=== PATIENT | male | born 1970 | race Caucasian/White ===

== ENCOUNTER → 2020-01-13 13:44 | Outpatient (POV) | payer BC, SELFPAY | DX: Z00.00 Encounter for general adult medical examination without abnormal findings (principal) ==

== ENCOUNTER → 2020-05-27 08:06 | Outpatient (CLI) | payer BC, SELFPAY ==
[2020-05-27 09:23] LABS: Basophils # 0.1 K/mm3 (0-0.2); Eosinophils # 0.2 K/mm3 (0.0-0.4); Eosinophils % 2.1 % (0.1-12.0); Hematocrit 51.8 % (42.0-52.0); Hemoglobin 17.6 g/dL (14.1-18.0); Lymphocytes # 2.2 K/mm3 (0.7-4.5); Lymphocytes % 29.7 % (10-50); Mean Corpuscular HGB Conc 33.9 g/dL (31.8-35.4); Mean Corpuscular Hemoglobin 31.2 pg (27.0-31.2); Mean Corpuscular Volume 92.1 fl (80-94); Mean Platelet Volume 9.3 fl (7.4-10.4); Monocytes # 0.5 K/mm3 (0.1-1.0); Monocytes % 6.5 % (1.7-9.3); Neutrophils # 4.5 K/mm3 (1.8-7.8); Neutrophils % 60.7 % (37.0-80.0); Platelet Count 258 K/mm3 (142-424); Red Blood Count 5.63 M/mm3 (4.60-6.20); Red Cell Distribution Width 13.6 % (11.5-17.5); White Blood Count 7.3 K/mm3 (4.8-10.8)
[2020-05-27 10:02] LABS: Alanine Aminotransferase 33 U/L (12-78); Albumin Level 4.4 g/dl (3.5-5.0); Albumin/Globulin Ratio 1.5 (1.1-1.8); Alkaline Phosphatase 36 U/L (38-126); Anion Gap 13.9 mEq/L (5-15); Aspartate Amino Transferase 30 U/L (17-59); Bilirubin,Total 1.2 mg/dl (0.2-1.3); Blood Urea Nitrogen 13 mg/dl (9-20); Calcium 9.7 mg/dl (8.4-10.2); Carbon Dioxide 25 mmol/L (22.0-30.0); Chloride 104 mmol/L (98-107); Cholesterol 127 mg/dl (140-200); Estimated Glomerular Filt Rate 89 ml/min (>60); GFR (African American) 108 ML/MIN (>60); Glucose 121 mg/dl (74-100); HDL Cholesterol 32 mg/dl (40-60); Potassium 4.9 mmoL/L (3.5-5.1); Sodium 138 mmol/L (136-145); Total Protein,Serum 7.4 g/dl (6.3-8.2); Triglycerides 67 mg/dl (30-150); VLDL Cholesterol 13 mg/dL (0-40)
[2020-05-27 10:12] LABS: Direct LDL Cholesterol 82.87 mg/dL (100-129)
[2020-05-31 10:49] LABS: Testosterone, Total, LC/MS 450.5 ng/dL (264.0-916.0); Testosterone,Free 7.7 pg/mL (7.2-24.0)
== END ==
PROVIDERS: Visit Provider Internal Medicine Adolescent Medicine
DX: I10 Essential (primary) hypertension (principal); E29.1 Testicular hypofunction
CPT/HCPCS: 36415; 80053; 80061; 84402; 84403; 85025

== ENCOUNTER → 2020-05-31 10:36 | Outpatient (CLI) | payer BC, SELFPAY ==
[2020-05-31 14:05] LABS: Hemoglobin A1C 5.8 % (4.0-6.0)
== END ==
PROVIDERS: Visit Provider Internal Medicine Adolescent Medicine
DX: I10 Essential (primary) hypertension (principal); E29.1 Testicular hypofunction
CPT/HCPCS: 36415; 83036

== ENCOUNTER → 2021-03-13 12:12 | Outpatient (CLI) | payer SELFPAY | PROVIDERS: PCP Internal Medicine Adolescent Medicine; Visit Provider Nurse Practitioner | DX: Z20.822 Contact with and (suspected) exposure to COVID-19 (principal) ==

== ENCOUNTER → 2021-03-13 12:18 | Outpatient (CLI) | payer OTHER, SELFPAY | PROVIDERS: PCP Internal Medicine Adolescent Medicine; Visit Provider Nurse Practitioner | DX: Z20.822 Contact with and (suspected) exposure to COVID-19 (principal) | CPT/HCPCS: C9803; U0003; U0005 ==

== ENCOUNTER → 2021-07-06 07:47 | Outpatient (CLI) | payer OTHER, SELFPAY ==
--- NOTE | 2021-07-06 08:06 | MR_ITS ---
FINAL REPORT CLINICAL HISTORY: FAMILY HISTORY OF CEREBRAL ANEURYSM. hypertesion FINDINGS: Multiple projection images of the brain arterial vasculature were obtained without contrast. The raw data images were also reviewed. The distal internal carotid, distal vertebral and basilar arteries have an unremarkable appearance without evidence of significant stenosis or occlusion. The proximal anterior, middle and posterior cerebral arteries have an unremarkable appearance. There is no evidence of significant stenosis or major branch occlusion. No aneurysm or vascular malformation is identified. IMPRESSION: Unremarkable MR angiogram of the head. Reviewed, Interpreted and Dictated by Dhaval Brown III, MD Transcribed by Viviane Brown Authenticated by Dhaval Brown III, MD on 07/06/2021 09:44:[address] [facility]
== END ==
PROVIDERS: PCP Internal Medicine Adolescent Medicine; Visit Provider Internal Medicine Adolescent Medicine
DX: Z82.49 Family history of ischemic heart disease and other diseases of the circulatory system (principal); I10 Essential (primary) hypertension
CPT/HCPCS: 70544

== ENCOUNTER → 2022-03-06 12:55 | Outpatient (CLI) | payer OTHER, SELFPAY ==
--- NOTE | 2022-03-06 13:40 | CA_ITS ---
APPROVED REPORT Exam: Exercise Treadmill Technologist: Pati Garvin, Ht: 6 ft 0 in Wt: 285 lbs BSA: 2.48 m2 HR: 71 bpm BP: 133/81 mmHg Medical History Medications: Amlodipine,,,,, Lisinopril,,,,, Stress Test Details Test: Lb HR Resting HR: 78 bpm Max Heart Rate (APMHR): 168 bpm Max HR Achieved: 144 bpm Target HR (85% APMHR): 142 bpm % of APMHR: 85 Recovery HR: 93 bpm BP Resting BP: 132/78 mmHg Max BP: 216/76 mmHg Recovery BP: 145.0/81.0 mmHg ECG Resting ECG: NSR, normal Clinical Exercise duration: 07:26 min Highest Stage Achieved: III Exercise capacity: 10.1 METs Overall Exercise Capacity for Age: Poor Stress ECG Conclusion Exercised 7:26 into Stage III of Lb Protocol, stopping due to SOA. Max HR: 140 % of PM: 83% Max BP: 216/76 METs: 10.1 Test stopped due to: SOA, Fatigue. Symptoms: No CP. Fleeting dizziness immediate post exercise. Arrhythmias/Ectopy: Occ PVC. ST-T Changes: 0.5-1.0mm slightly up sloping ST depresion laterally. Conclusion: Equivocal EKG changes for HR achieved (83% of PM) GXT only (no imaging) -- essentially normal test, but poor fitness noted and did not achieve target HR... if worrisome symptoms, consider imaging study Test Summary REST . . . . . . . Sitting REST . . . . . . . Standing REST 04:08 0.0 0.0 78 . 132/ 78 . . Stage 1 01:00 10.0 1.7 96 . . . . Stage 1 02:00 10.0 1.7 104 . . . . Stage 1 03:00 10.0 1.7 107 . 200/ 78 . . Stage 2 01:00 12.0 2.5 113 . . . . Stage 2 02:00 12.0 2.5 120 . . . . Stage 2 03:00 12.0 2.5 123 . 216/ 76 . . Stage 3 01:00 14.0 3.4 136 . . . . Stage 3 01:26 14.0 3.4 140 . . . Stop exercise at 07:26 RECOVERY 01:00 0.0 0.0 123 . . . . RECOVERY 02:00 0.0 0.0 107 . . . . RECOVERY 03:00 0.0 0.0 94 . 183/ 79 . . RECOVERY 04:00 0.0 0.0 93 . 153/ 76 . . RECOVERY 05:00 0.0 0.0 92 . 145/ 81 . . RECOVERY 05:29 0.0 0.0 89 . 145/ 81 . . Electronically signed by : Felton Stout MD 03/06/2022 20:51:56
== END ==
LOC: RT 12:56
PROVIDERS: PCP Family Medicine; Visit Provider Family Medicine
DX: R06.09 Other forms of dyspnea (principal); I10 Essential (primary) hypertension
CPT/HCPCS: 93017; 93306

== ENCOUNTER → 2022-04-03 07:01 | Outpatient (CLI) | payer SELFPAY ==
--- NOTE | 2022-04-03 07:03 | CT_ITS ---
FINAL REPORT TECHNIQUE: Thin section axial images were obtained through the heart and coronary arteries per CT coronary calcium score protocol. This study was performed with techniques to keep radiation doses as low as reasonably achievable (ALARA). Individualized dose reduction techniques using automated exposure control or adjustment of mA and/or kV according to the patient's size were employed. CLINICAL HISTORY: . FAMILY HX HEART DISEASE FINDINGS: On the axial images, no calcification is identified. This gives a coronary artery calcium score of 0 based on the Agatston scale. This coronary calcium score places the patient within the zero percentile based on age and gender. The heart is normal in size. There is no pleural or pericardial effusion. Limited evaluation of the lungs reveal no suspicious nodule. IMPRESSION: Coronary calcium score in the zero percentile. Reviewed, Interpreted and Dictated by Fortino Murphy MD Transcribed by Alyse Queen Authenticated and [facility]
== END ==
PROVIDERS: PCP Family Medicine; Visit Provider Physician Assistant
DX: Z13.6 Encounter for screening for cardiovascular disorders (principal)
CPT/HCPCS: 75571

== ENCOUNTER → 2022-04-03 07:04 | Outpatient (CLI) | payer OTHER, SELFPAY ==
--- NOTE | 2022-04-03 07:05 | CA_ITS ---
FINAL REPORT TECHNIQUE: Grayscale, color Doppler and duplex Doppler ultrasound of the kidneys, aorta and renal arteries was performed. Multiple velocities were measured. CLINICAL HISTORY: HTN, Family hx(Paternal) renal disorder with underdevelopment and renal mass. FINDINGS: Aorta velocity: 105 cm/sec Right kidney: 12.0 cm. No evidence of hydronephrosis or mass. Right intrarenal RI: 0.66 Right renal artery velocity: 184 cm/sec. Right RAR (Renal artery-Aortic Ratio): 1.8 Left Kidney: 11.6 cm. No evidence of hydronephrosis or mass. Left intrarenal RI: 0.67 Left renal artery velocity: 173 cm/sec. Left RAR (Renal Artery-Aortic Ratio): 1.7 IMPRESSION: No evidence of significant renal artery stenosis. CT angiogram or postcontrast MR angiogram would be more sensitive for evaluation of possible renal artery stenosis. Reviewed, Interpreted and Dictated by Fortino Murphy MD Transcribed by Selina Peña Authenticated and [facility]
--- NOTE | 2022-04-03 08:22 | US_ITS ---
FINAL REPORT TECHNIQUE: Sonographic images were obtained of the retroperitoneum. CLINICAL HISTORY: Z13.6 - Encounter for screening for cardiovascular disorders htn FINDINGS: The right kidney measures 11.8 cm. The left kidney measures 11.4 cm. There is no evidence of renal mass or hydronephrosis. The spleen measures 10.5 cm. IMPRESSION: No acute process. Reviewed, Interpreted and Dictated by Fortino Murphy MD Transcribed by Jaguar Acevedo Authenticated and [facility]
== END ==
PROVIDERS: PCP Family Medicine; Visit Provider Physician Assistant
DX: R06.09 Other forms of dyspnea (principal); I10 Essential (primary) hypertension; Z13.6 Encounter for screening for cardiovascular disorders
CPT/HCPCS: 76770; 93976

== ENCOUNTER → 2023-01-24 12:45 | Outpatient (CLI) | payer OTHER, SELFPAY ==
--- NOTE | 2023-01-24 13:00 | XR_ITS ---
FINAL REPORT CLINICAL HISTORY: low back pain, no recent injury, patient states he injured 20 years ago and sometimes the pain flares COMPARISON: None FINDINGS: No fracture is identified. There is mild to moderate degenerative change of the lumbar spine present, with multilevel osteophytes and facet osteoarthropathy. A mild left curvature of the lumbar spine is present as well. IMPRESSION: Mild to moderate degenerative change as described. Reviewed, Interpreted and Dictated by Dhaval Brown III, MD Transcribed by Eduarda Fuentes Authenticated and . [facility]
== END ==
PROVIDERS: PCP Family Medicine; Visit Provider Family Medicine
DX: M54.50 Low back pain, unspecified (principal)
CPT/HCPCS: 72100

== ENCOUNTER 2024-05-16 10:37 | Emergency (ER) | payer OTHER, SELFPAY ==
[2024-05-16 11:55] VITALS: BP 155/91; PULSE 85; RESP 18; TEMP 36.9; O2SAT 94; BMI 32.5
--- NOTE | 2024-05-16 12:00 | EXP.UTC ---
Discharge Plan Disposition Patient Disposition: Home, Self-Care Condition: Good Prescriptions Prescriptions: New benzonatate 100 mg capsule 100 mg PO TIDP PRN (Reason: Cough) Qty: 30 0RF methylprednisolone 4 mg Tablets,Dose Pack 4 mg PO DIRECTED 6 Days Qty: 21 0RF Rx Instructions: Take 1 pack as directed for 6 days amoxicillin-pot clavulanate 875-125 mg Tablet 1 tab PO Q12H Qty: 20 0RF No Action amlodipine 10 mg tablet 10 mg PO DAILY Qty: 30 2RF lisinopril 40 mg tablet 40 mg PO DAILY Qty: 30 2RF metoprolol succinate [Toprol XL] 25 mg tablet extended release 24 hr 25 mg PO QHS Qty: 30 2RF pseudoephedrine HCl 120 mg tablet extended release 120 mg PO Q12H Qty: 20 1RF Referrals Follow up/Referrals: Davide Morrison MD [Primary Care Provider] - See instructions Activity Restrictions/Add. Instructions Additional Instructions/Restrictions: Drink plenty of fluids. Take tylenol or ibuprofen for pain or fever. Take the medications as directed. Follow up with your regular doctor. GO TO THE ER FOR ANY WORSENING SYMPTOMS Clinical Impressions Clinical Impression: Otitis media, Pharyngitis, Bronchitis Instructions Patient Instructions: Sore Throat, DI for Pharyngitis/Tonsillopharyngitis -- Adult Print Language Print Language: Tanzanian Discharge ED Provider: Luis Key [facility] HPI General Stated complaint: ear pain congestion rig[facility] st Mode of Arrival: Ambulatory Source of Information: Patient Time Seen by Provider: 05/16/24 11:59 Description of Symptoms (Recalled from Triage Doc. by RN): EAR PAIN, SORE THROAT, RIGGS, SINUS PRESSURE HEENT Symptoms (Recalled from RN notes): Yes Resp Symptoms (Recalled from RN notes): Yes Skin Symptoms (Recalled from RN notes): No MS Symptoms (Recalled from RN notes): No Functional Status (Recalled from RN notes): WNL Related Data Previous Rx's ?Medication ?Instructions ?Recorded amlodipine 10 mg tablet 10 mg PO DAILY HTN #30 tabs 24 lisinopril 40 mg tablet 40 mg PO DAILY HTN #30 tabs 24 metoprolol succinate 25 mg 25 mg PO QHS HTN #30 tabs 24 tablet,extended release 24 hr (Toprol XL) amoxicillin 875 mg-potassium 1 tab PO Q12H #20 tabs 05/16/24 clavulanate 125 mg tablet benzonatate 100 mg capsule 100 mg PO TIDP PRN Cough #30 caps 05/16/24 methylprednisolone 4 mg tablets in 4 mg PO DIRECTED 6 days #21 tabs 05/16/24 a dose pack pseudoephedrine HCl 120 mg 120 mg PO Q12H #20 tabs 05/19/24 tablet,extended release Allergies Allergy/AdvReac Type Severity Reaction Status Date / Time No Known Allergies Allergy Verified 05/19/24 09:17 Worker's Comp Is this a Worker's Comp case?: No [facility] Disclaimer: The information contained in this section may have been updated after the patient was seen, as this information can be updated by other users. Medical History Hypertension Surgical History H/O vasectomy H/O elbow surgery Family History Mother Hypertension Cancer Father Hypertension Kidney disease Aneurysm Grandmother Hypertension Grandfather Hypertension Brother Aneurysm Stroke Social History Smoking Status: Current every day smoker tobacco type: smokeless tobacco alcohol intake: current alcohol intake frequency: holidays/special occasions only substance use type: denies use current occupational status: employed Travel in the last 8 weeks: Inside the [place] household members: spouse housing: house Have you lived/traveled outside US in past 30 days?: No Contact w/someone who lives/traveled outside US past 30 days?: No Exposure to someone with infectious disease in past 14 days?: No Do you have a fever (greater than 100.4 F or 38 C)?: No Have you tested positive for COVID-19: No Exposed to someone with COVID-19 in past 14 days?: No Do you have a sore throat?: No Do you have a cough?: No Do you have shortness of breath?: No Do you have a headache?: No Do you have any weakness?: No Are you experiencing any nausea/vomitting?: No Do you have any diarrhea?: No Are you experiencing any unusual bleeding?: No Do you have any muscle aches/pain?: No Do you have any abdominal pain?: No Are you experiencing loss of taste or smell?: No ROS Obtained: Yes All systems reviewed & no additional complaints except as documented Constitutional Constitutional: Reports chills and Reports fever(s) Eyes Eyes: Denies eye discharge ENT Ears, Nose, Mouth, and Throat: Reports as per HPI Cardiovascular Cardiovascular: Denies chest pain Respiratory Respiratory: Denies chest congestion and Reports cough Gastrointestinal Gastrointestingal: Reports nausea; Denies abdominal pain, constipation, cramping, diarrhea or vomiting Musculoskeletal Musculoskeletal: Denies arthralgias Integumentary/Breasts Skin/Breast: Denies rash Neurologic Neurologic: Denies paresthesias Physical Exam General General appearance: alert and in no apparent distress Head Head exam: atraumatic, normocephalic and normal inspection Eye Eye exam: Present normal appearance, PERRL and EOMI ENT ENT exam: Present mucous membranes moist and normal external ear exam Expanded ENT Exam TM/Canal exam: Bilateral TM: erythema and bulging Nose exam: Absent sinus tenderness Mouth exam: Present normal external inspection; Absent drooling Teeth exam: Present normal inspection Throat exam: Present tonsillar erythema, tonsillomegaly and tonsillar exudate Neck Neck exam: Present normal inspection, full ROM and trachea midline; Absent tenderness, meningismus or lymphadenopathy Chest Chest inspection: Present normal inspection and symmetric chest wall rise; Absent tenderness Respiratory Respiratory exam: Present normal lung sounds bilaterally; Absent respiratory distress, wheezes, stridor or accessory muscle use Cardiovascular Cardiovascular exam: Present regular rate and normal rhythm; Absent systolic murmur or diastolic murmur Abdominal Exam Abdominal exam: Present soft and normal bowel sounds; Absent distention, tenderness, guarding, rebound or rigidity Extremities Exam Extremities exam: Present normal inspection and normal capillary refill; Absent calf tenderness Back Exam Back exam: Present normal inspection and full ROM; Absent tenderness, CVA tenderness (R) or CVA tenderness (L) Neurological Exam Neurological exam: Present alert, oriented X3 and CN II-XII intact Psychiatric Psychiatric exam: Present normal affect and normal mood Skin Skin exam: Present warm, dry, intact and normal color Medical Decision Making Medical Records Medical records reviewed: No I reviewed the patient's medical records. Screening: Per USPSTF and CDC recommendations, given the prevalence of disease in our region, it is our hospital?s policy to screen for HIV and viral Hepatitis for all patients aged 18 and over and those with ongoing risk factors. Pedro Inquiry Pt receiving controlled substance: No Vital Signs: 05/16/24 11:55 Temperature 98.4 F Temperature Source Oral Pulse Rate [Left Brachial] 85 Respiratory Rate 18 Blood Pressure [Left Arm] 155/91 H Blood Pressure Mean [Left Arm] 112 02 Sat by Pulse Oximetry 94 L Lab Data Lab results reviewed: Yes I reviewed the patient's lab results.
[2024-05-16 12:03] LABS: UTC Strep Screen (Rapid) Negative (Negative)
[2024-05-16 13:03] VITALS: BP 155/91; PULSE 85; RESP 18; TEMP 36.9
[2024-05-16 13:38] LABS: Coronavirus 19, PCR Not Detected (NotDetected); Influenza A, PCR Not Detected (NotDetected); Influenza B, PCR Not Detected (NotDetected)
== END 2024-05-16 13:04 | disposition home or self-care (01) ==
PROVIDERS: Emergency Provider Nurse Practitioner Family; PCP Family Medicine
DX: H66.93 Otitis media, unspecified, bilateral (principal); J02.9 Acute pharyngitis, unspecified; J20.9 Acute bronchitis, unspecified
CPT/HCPCS: 87636; 87880; 99213; G0381

== ENCOUNTER 2024-07-06 13:45 | Outpatient (CLI) | payer OTHER, SELFPAY ==
--- NOTE | 2024-07-06 13:49 | XR_ITS ---
FINAL REPORT CLINICAL HISTORY: RLL rales and wheezes FINDINGS: PA and lateral views of the chest are obtained. There is no prior exam for comparison. The cardiac and mediastinal silhouettes are within normal limits. The lungs are clear. There is no pleural effusion, pneumothorax, or acute osseous abnormality. IMPRESSION: No radiographic evidence of acute cardiac or pulmonary disease. Reviewed, Interpreted and Dictated by Joy Neri MD Transcribed by Viviane Brown Authenticated and [facility]
== END 2024-07-06 23:59 | disposition home or self-care (01) ==
LOC: LAB 13:46
PROVIDERS: PCP Family Medicine; Visit Provider Family Medicine
DX: R09.89 Other specified symptoms and signs involving the circulatory and respiratory systems (principal); R05.9 Cough, unspecified
CPT/HCPCS: 71046; 87070; 87205

== ENCOUNTER 2024-10-29 13:06 | Day surgery (SDC) | payer OTHER, SELFPAY ==
[2024-10-29 13:24] VITALS: BMI 32.5
[2024-10-29 13:25] VITALS: BP 160/103; PULSE 70; RESP 16; TEMP 36.1; O2SAT 97
[2024-10-29] MEDS: LACTATED RINGERS 1000ML 1,000 ML 30 ML IV (13:33)
--- NOTE | 2024-10-29 13:57 | EXP.HP ---
History of Present Illness *Admission Date: 10/29/24 *Reason for visit:: Choking *History of present illness: Mr. Sanabria is a 54-year-old gentleman who is here for diagnostic/therapeutic EGD secondary to choking and chronic coughing. He does have frequent clearance of the throat. The examination is deemed medically necessary for [default value]. The patient has been seen, interviewed and examined prior to the procedure by both myself and the anesthesia provider. [facility] Disclaimer: The information contained in this section may have been updated after the patient was seen, as this information can be updated by other users. Medical History (Updated 10/29/24 @ 13:21 by Lillian Lujan RN) Asthma Hypertension Surgical History H/O vasectomy H/O elbow surgery Family History Mother Hypertension Cancer Father Hypertension Kidney disease Aneurysm Grandmother Hypertension Grandfather Hypertension Brother Aneurysm Stroke Social History Smoking Status: Current every day smoker tobacco type: smokeless tobacco alcohol intake: current alcohol intake frequency: holidays/special occasions only substance use type: denies use current occupational status: employed Travel in the last 8 weeks?: [place] the [place] household members: spouse housing: house caffeine: No Have you lived/traveled outside US in past 30 days?: No Contact w/someone who lives/traveled outside US past 30 days?: No Exposure to someone with infectious disease in past 14 days?: No Do you have a fever (greater than 100.4 F or 38 C)?: No Have you tested positive for COVID-19?: No Exposed to someone with COVID-19 in past 14 days?: No Do you have a sore throat?: No Do you have a cough?: No Do you have any weakness?: No Do you have any diarrhea?: No Are you experiencing any unusual bleeding?: No Do you have any muscle aches/pain?: No Do you have any abdominal pain?: No Are you experiencing loss of taste or smell?: No Other Medical History Have you received the Pneumonia Vaccine: No Review of Systems Review of Systems Review of systems (narrative): Negative *Cardiovascular Comments: Negative *Gastrointestinal Comments: Negative *Genitourinary Comments: Negative *Musculoskeletal Comments: Negative *Neurologic Comments: Negative Meds Home Medications and Allergies Home Medications ?Medication ?Instructions ?Recorded ?Confirmed ?Type amlodipine 10 mg tablet 10 mg PO DAILY HTN #30 tabs 07/01/23 10/29/24 Rx lisinopril 40 mg tablet 40 mg PO DAILY HTN #30 tabs 07/01/23 10/29/24 Rx metoprolol succinate 25 mg 25 mg PO QHS HTN #30 tabs 07/01/23 10/29/24 Rx tablet,extended release 24 hr (Toprol XL) New Prescriptions to Start Prescriptions: Allergies Allergy/AdvReac Type Severity Reaction Status Date / Time No Known Allergies Allergy Verified 09/23/24 11:38 Exam Data for Last 24 hours Vital signs and Labs for Last 24 Hours: Temp Pulse Resp BP Pulse Ox O2 Del Method 97.0 F L 70 16 160/103 H 97 Room Air 10/29/24 13:25 10/29/24 13:25 10/29/24 13:25 10/29/24 13:25 10/29/24 13:25 10/29/24 13:25 I & O for Last 24 hours: Intake & Output 10/26/24 10/27/24 10/28/24 10/29/24 23:59 23:59 23:59 23:59 Weight 240 lb *Routine HEENT Exam Head: Present normocephalic Eye: Present EOMI and PERRL ENT: Present mucous membranes moist *Routine Neck Exam Neck: Present supple *Routine Respiratory Exam Respiratory: Present CTA bilaterally *Routine Cardiovascular Exam Cardiovascular: Present RRR *Routine Abdominal Exam Abdominal: Present soft and normoactive bowel sounds; Absent tenderness *Routine Rectal Exam Rectal:: deferred *Routine Genitalia Exam Genitalia:: deferred *Routine Extremities Exam Extremities: Absent cyanosis, clubbing or edema *Routine Skin Exam Skin: Present warm; Absent rash *Routine Neurological Exam Neurological: Present alert and oriented X3 Assessment and Plan *Assessment and plan (1) Choking: Status: Acute Category: Medical Code(s): T17.308A - Unspecified foreign body in larynx causing other injury, initial encounter (2) Hoarseness: Status: Acute Category: Medical Code(s): R49.0 - Dysphonia (3) Throat clearing: Status: Acute Category: Medical Code(s): R09.89 - Other specified symptoms and signs involving the circulatory and respiratory systems (4) Chronic cough: Status: Acute Category: Medical Code(s): R05.3 - Chronic cough Plan A/P: 1. Choking, hoarseness, throat clearing and chronic cough is the preprocedural diagnosis. The patient will be anesthetized/sedated using MAC sedation. The patient has been seen and examined. Cardiac and lung assessment prior to the examination is stable. Proceed with planned diagnostic EGD.
--- NOTE | 2024-10-29 13:59 | EXP.ANES.CKL ---
[facility] Disclaimer: The information contained in this section may have been updated after the patient was seen, as this information can be updated by other users. Medical History (Updated 10/29/24 @ 13:21 by Lillian Lujan RN) Asthma Hypertension Surgical History H/O vasectomy H/O elbow surgery Family History Mother Hypertension Cancer Father Hypertension Kidney disease Aneurysm Grandmother Hypertension Grandfather Hypertension Brother Aneurysm Stroke Social History Smoking Status: Current every day smoker tobacco type: smokeless tobacco alcohol intake: current alcohol intake frequency: holidays/special occasions only substance use type: denies use current occupational status: employed Travel in the last 8 weeks?: [place] the [place] household members: spouse housing: house caffeine: No Have you lived/traveled outside US in past 30 days?: No Contact w/someone who lives/traveled outside US past 30 days?: No Exposure to someone with infectious disease in past 14 days?: No Do you have a fever (greater than 100.4 F or 38 C)?: No Have you tested positive for COVID-19?: No Exposed to someone with COVID-19 in past 14 days?: No Do you have a sore throat?: No Do you have a cough?: No Do you have any weakness?: No Do you have any diarrhea?: No Are you experiencing any unusual bleeding?: No Do you have any muscle aches/pain?: No Do you have any abdominal pain?: No Are you experiencing loss of taste or smell?: No [facility] Anesthesia Checklist Patient Identification Patient Identification: Arm Band Structural Data Admitted From: Home Planned Operative Procedure/s: EGD Consent for Planned Operative Procedure(s) Verified: Yes Verified Documents: Surgical Consent and History and Physical NPO Status Verified Time NPO: 00:00 Additional verifications Anesthesia Reactions: No Airway Assessment Mallampati Score:: Class II C-Spine Mobility Assessed: Yes TMJ Mobility Assessed: Yes Dentition: Good Dentition Neurological Assessment Level of Consciousness: Awake, Alert and Appropriate Anesthesia Plan Anesthesia Risk discussed: Yes Anesthesia Plan: Verified ASA Class: II Anesthesia Type: MAC
--- NOTE | 2024-10-29 14:07 | HMH.PROCNOTE ---
[facility] Procedure Note Date: 10/29/24 Time: 14:14 Procedure Note:: Upper Endoscopy Procedure Report: Esophagogastroduodenoscopy with cold biopsies and TTS balloon dilation Endoscopost: Arash Upton II, MD Referring Physician: Davide Morrison MD Date of Procedure: October 29, 2024 Equipment: Olympus GIF 190 standard upper endoscope Sedation: MAC sedation Indications: Mr. Sanabria is a 54-year-old gentleman with choking for most of his life. The patient does eat really fast and got worse when he was in the . He does often choke when he eats fast and sometimes aspirates or inhales at the wrong time. In the last couple of years he is struggled with intermittent episodes of chronic coughing and frequent clearance of the throat. He has some hoarseness intermittently. He reports no heartburn or reflux. He reports no bloating, belching or gassiness out of the ordinary. He does use dip/smokeless tobacco since he was 14 years old. He has never had an EGD. He did have a colonoscopy with nh in [place] in July 2023. Procedure: Prior to the procedure, a history and physical exam was performed, and patient's medications and allergies were reviewed. The risks, benefits and alternatives of the sedation and procedure were discussed with the patient. All questions were answered and informed consent was obtained. The patient was brought to the procedure room. Patient identification and proposed procedure were verified by the physician and the nurse. The patient was placed in a left lateral decubitus position and the scope was passed under direct vision. Throughout the procedure, the patient's blood pressure, pulse, and oxygen saturations were monitored continuously. The upper GI endoscopy was accomplished without difficulty. The patient tolerated the procedure well. Findings: The scope was passed directly into the upper esophagus and advanced to the third portion of the duodenum. The post bulbar duodenum was normal with normal mucosa and conniventes. There was some peptic duodenitis of the duodenal bulb with superficial erosion and 1 very shallow superficial ulceration of the duodenal bulb. Cold biopsies were taken from the bulb. The scope was withdrawn through a normal pylorus into the stomach. There was some linear reactive gastropathy of the antrum. The body and fundus of the stomach were normal. Upon retroflexion there was no hiatal hernia. Cold biopsies were taken from the antrum and lesser curvature to rule out H. pylori. The scope was then withdrawn into the esophagus. There is no evidence of reflux esophagitis or Chairez's. There was no Schatzki's ring, furrowing or corrugation. Cold biopsies were taken from the proximal esophagus to rule out eosinophilic esophagitis. There was no inlet patch. The entire esophagus was dilated to 60 Northern [place]/20 mm with a TTS hydrostatic balloon. There was mild resistance at the cricopharyngeus. The remainder of the esophageal mucosa was normal. Impression: 1. 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 Mild linear reactive gastropathy of antrum and mild erosive peptic duodenitis of the duodenal bulb Plan: I will follow-up the biopsies and discusse the findings with the patient and family. I do feel that his coughing and choking are likely to be multifactorial but could be somewhat related to the cricopharyngeal spasm secondary to some bile reflux. Would consider trial of PPI plus Iberogast.
[2024-10-29 14:21] VITALS: BP 160/92; PULSE 69; RESP 17; TEMP 36.6; O2SAT 95
[2024-10-29 14:31] VITALS: BP 143/90; PULSE 62; RESP 17; TEMP 36.6; O2SAT 96
[2024-10-29 14:41] VITALS: BP 157/89; PULSE 64; RESP 16; O2SAT 96
[2024-10-29 14:51] VITALS: BP 150/90; PULSE 61; RESP 17; TEMP 36.6; O2SAT 97
== END 2024-10-29 15:07 | disposition home or self-care (01) ==
PROVIDERS: PCP Family Medicine; Visit Provider Internal Medicine Gastroenterology
PROC: 0DJ08ZZ Inspection of Upper Intestinal Tract, Via Natural or Artificial Opening Endoscopic (ICD-10-PCS; CPT 43239; principal; 2024-10-29 14:30)
DX: K22.4 Dyskinesia of esophagus (principal); K31.89 Other diseases of stomach and duodenum; K29.80 Duodenitis without bleeding; I10 Essential (primary) hypertension; F17.220 Nicotine dependence, chewing tobacco, uncomplicated; Z79.899 Other long term (current) drug therapy
CPT/HCPCS: 43239; 43249; C1726; J7120

== ENCOUNTER 2024-11-03 08:50 | Outpatient (CLI) | payer OTHER, SELFPAY ==
--- OUTSIDE RECORDS SUMMARY | 2013-10-21 04:30 | XMS_ITS | Continuity of Care Document ---
Author Organization [facility] Address [address] [place] [address] Phone Care Team Providers Care Mental Health Unit Lead Psychologist Name Role Phone Eb Jeffers MD Unavailable Unavailable Allergies, Adverse Reactions, Alerts Substance Reaction Status Criticality No Known Allergies Resolved No Inform ation Medications Medication Instructions Dosage Effective Dates (start - stop) Status Comments Mobic 7.5 mg tablet take 1 tablet by ora l route every day with food 7.5 MG - Active Procedures Procedure Date NEW PATNT OV DTL EXAM RADIOL EXAM, KNEE 3 VWS Doc meds verified w/pt or re Calc BMI abv up peace f/u TOBACCO NON-USER Advance Directives Directive Yes / No Effective Date File Name No Information Encounters Encounter Description Practice Location Reason(s) For Visit Diagnoses Date Provider Providers Copied on Encounter NEW PATNT OV DTL EXAM [facility] , [address], [place], [id number] , [place] tel:+ [phone] [facility] left knee (chief complaint) Pain in joint involving lower legObesityUnspeci fied internal derangement of knee 4 Zeyad Parson. [address] [place] [address], [address], [place], [place], [id number] , [place]. tel:[phone] Referring Provider: Eb Stinson, [address] [place], [place] [address] [address], [place], [address] . tel:[phone] Family History Family Member Type Diagnosis Age At Onset No Information Payers Payer name Insurance type Covered libertarian ID Authoriza tilauren(s) No Information Social History Type Description Quantity Date Captured Comments Alcohol Use Details Unknown Caffeine Use Details Unknown Tobacco Use Status Never smoked tobacco 2013 Smoking Status Never smoker Non-Smoking Tobacco Use Details : No Details Available : No Details Available Sex Male Vital Signs Date / Time: Height Weight BMI Pulse Rate Blood Pressure Temperature Respiratory Rate Body Surface Area Head Circumference Head Circ. Percentile Wt./Colin. Percentile BMI percentile Pulse Ox Inhaled Ox 7:43 AM 71.00 in 104.326 kg (230.00 lbs) 32.0 8 kg/m eter (2) Chief Complaint And Reason For Visit From encounter dated '10/21/2013 08:30'. left knee (chief complaint) Reason For Referral Reason For Referral No Information Plan Of Treatment Date Type Action Status Goal Dietary manageme nt education, guidance, and counseling completed Future Order: Radiology Order X- RAY OF KNEE 3 VIEWS ([id number]), Body Site: left, Sent on: Sent Future Order: Radiology Order X- RAY OF KNEE 3 VIEWS ([id number]), Body Site: left, Sent on: Sent History Of Present Illness Encounter Date Complaint History Of Prese nt Illness left knee Functional Status Date Functional Assessmen t No Information Instructions Date Instruction Additional Infor mation NSAID instructions - Medication refills must be requested before 4pm Saturday through Saturday Related to Unspecified internal derangement of knee - Patient education available at [email or web address] on the Education tab Related to Unspecified internal derangement of knee Dietary management e ducation, guidance, and counseling Related to Obesity, unspecified Assessments Type Assessment Date assessment Pain in joint involving lower le g assessment Obesity assessment Unspecified internal derangement of knee Patient Care Teams Name Effective Dates (start - stop) Status Members No Information
[2024-11-03 19:37] LABS: Basophils # 0.1 K/mm3 (0-0.2); Basophils % 1.2 % (0.1-2.0); Eosinophils # 0.4 Kmm3 (0.0-0.4); Eosinophils % 4.6 % (0.1-12.0); Hematocrit 48.3 % (42.0-52.0); Hemoglobin 16.5 g/dL (14.1-18.0); Immature Granulocytes # 0.02 10^3uL; Immature Granulocytes % 0.2 %; Lymphocytes # 2.6 K/mm3 (0.7-4.5); Lymphocytes % 31.7 % (10-50); Mean Corpuscular HGB Conc 34.2 g/dL (31.8-35.4); Mean Corpuscular Hemoglobin 31.4 pg (27.0-31.2); Mean Platelet Volume 12.6 fl (7.4-10.4); Monocytes # 0.8 K/mm3 (0.1-1.0); Monocytes % 9.1 % (1.7-9.3); Neutrophils # 4.4 K/mm3 (1.8-7.8); Neutrophils % 53.2 % (37.0-80.0); Nucleated Red Blood Cells # 0 10^3/uL; Nucleated Red Blood Cells % 0 %; Platelet Count 244 K/mm3 (142-424); Red Blood Count 5.25 M/mm3 (4.60-6.20); Red Cell Distribution Width 13.8 % (11.5-17.5); Red Cell Distribution Width-SD 46.9 fL; White Blood Count 8.2 K/mm3 (4.8-10.8)
[2024-11-03 19:53] LABS: Alanine Aminotransferase 28 U/L (12-78); Albumin Level 4.2 g/dl (3.5-5.0); Albumin/Globulin Ratio 1.6 (1.1-1.8); Alkaline Phosphatase 52 U/L (38-126); Anion Gap 13.4 mEq/L (5-15); Aspartate Amino Transferase 28 U/L (17-59); Bilirubin,Total 1.3 mg/dl (0.2-1.3); Blood Urea Nitrogen 18 mg/dl (9-20); Calcium 9.5 mg/dl (8.4-10.2); Carbon Dioxide 25 mmol/L (22.0-30.0); Chloride 105 mmol/L (98-107); Chol/HDL Ratio 4.4 (1-3.5); Cholesterol 120 mg/dl (140-200); Estimated Glomerular Filt Rate 88 ml/min (>60); GFR (African American) 106 ML/MIN (>60); Globulin 2.7 g/dL (1.3-3.2); Glucose 91 mg/dl (74-100); HDL Cholesterol 27 mg/dl (40-60); Potassium 4.4 mmoL/L (3.5-5.1); Sodium 139 mmol/L (136-145); Total Protein,Serum 6.9 g/dl (6.3-8.2); Triglycerides 106 mg/dl (30-150); VLDL Cholesterol 21 mg/dL (0-40)
[2024-11-03 20:04] LABS: Direct LDL Cholesterol 68.24 mg/dL (100-129)
[2024-11-03 20:10] LABS: Hemoglobin A1C 6.1 % (4.0-6.0)
[2024-11-03 20:26] LABS: Prostate Specific Ag Screen 1.1 ng/ml (0.0-4.0); Thyroid Stimulating Hormone 1.27 uIU/mL (0.465-4.68)
[2024-11-03 20:27] LABS: HIV Combo NEGATIVE (Negative)
[2024-11-03 20:36] LABS: Hepatitis C Ab Qual. W/ RFX NEGATIVE (Negative)
--- OUTSIDE RECORDS SUMMARY | 2024-11-04 09:49 | XMS_ITS | Data Portability ---
Author Organization [facility] JEFFERY Byrne [place] CLOSED Address [address] [place] [address] Care Team Providers Care Strategic Account Director Name Role Phone MARY OSBORNE Primary Care Provider TOMER REYNOLDS Civil Engineering Project Designer Assessment No assessment recorded. Plan of Treatment Reminders Order Date Submit Date Provider Last Modified By Organization Details Last Modified Time Details Appointments FOLLOW UP DAK 2025 07:50A Marvin FINE DIRECTOR OF NEUROLOGY Not available Not available Not available Lab surgic al pathol ogy study 2024 025 [facility], [address] [place] [address], [id number], 09/02/2024 10:44:27 surgic al pathol ogy study 2023 024 [facility], [address] [place] [address], [phone], 10/28/2023 13:42:24 Referral None record ed. Procedures None record ed. Surgeries None record ed. Imaging None record ed. Medication Orders None record ed. Patient TargetsNo targets recorded. Patient InstructionsNo instructions recorded. Reason for Referral None Reported. Results Created Date Observation Date Name Description Value Unit Range Abnormal Flag Note LastModifiedBy Organization Detail LastModifiedTime 09/02/1909/01/2024 SURGI ANNIKA surgical SEE BELOW Gering topat holog y Repor t NAME: BERENICE SCHULER PATH: [id number] PROCE DURE DATE: 09/01 SIGNO UT DATE: 09/02 Copy to: Diagn osis: Left axill a- ACROC HORDO N SOURC E OF SPECI MEN: DAK SKIN TAG 2 SLIDE S, L AXILL A CLINI ANNIKA INFOR MATIO N: R/O: TRITI ATED TAGS. Gross Descr iptio n: The speci men consi sted of multi ple (x3) ortega fragm ents which measu red 12 x 7 x 7 mm in aggre gate. All piece s submi tted in toto. All tissu e submi tted in two casse ttes. Micro scopi c Descr iptio n: A fibro epith elial polyp is noted . JESS CARCAMO MD Trudi d Out Date: 09/02 10:44 1 Not Available [facility] [address] [place], [address], 09/02/2024 10:44:26 Result Notes None recorded. Problems Name Problem SNOMED Code Status Onset Date Resolution Date Notes Provider Name and Address Organization Details Recorded Time Hypertensive disorder 01488624 Active 2024 Parviz cardenas [facility] 5 07:49:52 Problem Notes None recorded. Procedures Surgical History Date Name Laterality Status Provider Name and Address Organization Details Recorded Time 5 DAK - Destruction BN Lesions completed Marifer Read [facility] 2024 08:09:54 5 Shave Removal completed Marifer Read [facility] 2024 08:13:44 4 DAK - Shave removal scalp/neck/hand s/feet/genitali a completed Caro Angulo [facility] 10/24/2023 09:45:42 Imaging Results None recorded. Procedure Notes None recorded. Medical Equipment None Reported. Allergies No known drug allergies Medications Name Sig Start Date Stop Date Status Note LastModified by Organization Details LastModified Time amlodipine active Not Available Not Av ailable Not Available lisinopril active Not Available Not Av ailable Not Available Vitals None Recorded Social History Question Answer Notes LastModified by Organizat ion Details LastModified Time Tobacco Smoking Status Current Every Day Smoker Horace Cochiti [facility] 10/24/2023 09:27:43 What Was The Date Of Your Most Recent Tobacco Screening? 10/24/2023 [email or web address] Information not available 10/24/2023 Sex: Male Functional Status Question Answer Note LastModified by Organizat ion Details LastModified Time What is your level of alcohol consumption? Occasional [email or web address] Information not available 10/24/2023 Mental Status None recorded. Family History Relationship Description Onset Age of this Age Resolved Age Notes LastModified by Organization Details LastModified Time Paternal Grandfather Malignant melanoma 88 89 [email or web address] Not available 2024 07:35:34 Father Basal cell carcinoma of skin [email or web address] Not available 2024 07:35:35 Medical History Condition Response Varicose Veins N Autoimmune disease N Skin Problems N Squamous Cell Carcinoma N Basal Cell Carcinoma N Skin Cancer N Eczema N Melanoma N Other Skin Condition N Acne N Past Encounters Encounter ID Performer Location Encounter Start Date Encounter Closed Date Diagnosis/Indication Diagnosis SNOMED-CT Code Diagnosis ICD10 Code Diagnosis Note [id number] TOMER KAPOOR MD [facility] [address] [place] [address] 10/24/2023 09:03:41 10/24/2023 09:46:54 Neoplasm of uncertain behavior of skin 92223490 D48.5 Right occipital scalp (shave) - 8mm pink scaly papule - R/o VV vs ISK vs SCC [id number] STEPHANI Tam APRN [facility] [address] [place] [address] 2024 07:32:23 2024 08:18:32 Multiple benign melanocytic nevi 870500814 D22.5 - Benign moles seen on exam today - SPF 30 or higher broad-spec trum sunscreen recommende d with re-applica tion every 2 hours - Discussed sun protection measures, including wide-brimm ed hat, sun-protec tive clothing, and avoidance of sun during peak hours of 10am-4pm - Avoid tanning beds as these can increase the chances of all 3 types of skin cancer - Instructed to monitor for changes and to call us for appointmen t with any changing or worrisome lesions Seborrheic keratosis [id number] L82.1 - Benign overgrowth s of skin - Hereditary Senile angioma 0160875 I 78.1 - Benign blood vessel growths - Hereditary Solar lentigo [id number] L 81.4 - Benign brown spots - Sun-induce d Inflamed s eborrheic keratosis 121901126 L82.0 L53.8 Patient reports these have been getting caught on collared shirts, very bothersome . Requests removal Counseled on benign nature. Pt elected to treat with liquid nitrogen due to painful irritation . May recur or persist after treatment. Discolorat ion or scarring is possible. Neoplasm o f uncertain behavior of skin [id number] D48.5 Patient reports these are bothersome , requests removal Recommend shave biopsy. Risks, benefit, and procedure discussed with patient. Consent obtained. Health Concerns Section Related Observation LastModified by Organization Detai ls LastModified Time None Recorded Concern Status LastModified by Organization Details LastModified Time None Recorded Advance Directives Directive None Recorded Payers Insurance Date Sequence Insurance Name Policy Number Policy Solano Covered Member ID Solano Member ID Guarantor Name 2024 1 UMR [id number] Chhaya Rush [id number] Berenice Sanabria 2024 2 UMR (PPO) [id number] Chhaya Rush [id number] Berenice Sanabria Notes Date Note Type Note Provider Name and Address Organization Details Recorded Time 10/24/2023 text/html Pt is here for a skin lesion Location: back of headDuration: since beginning of 2023Treatments: cryotherapyReport s: PCP did cryo, he froze 3x at home with a [employer] kit, lesion keeps coming back, wants spot gone, hard to brush hair, itchy TOMER KAPOOR MD [address] [place], [address], [place] [facility] 10/24/2023 13:00:30 2024 text/html Moles Location: neck x2 Duration: 4yrs Previous tx: None Reports: They itch and get aggravated whenever I wear suit and ties or anything that comes near the neck. I end up cutting them all the time which shaving. I would like them removed. Skin Tags Location: L armpit x2 Duration: Awhile Previous tx: None Reports: I cut them off in 2017 and they came back. One of them is large now. STEPHANI FINE, LONG TERM CARE ADMINISTRATOR [address] [place], [address], [facility] 2024 13:31:33
--- OUTSIDE RECORDS SUMMARY | 2024-11-04 09:49 | XMS_ITS | Clinical Summary ---
Author Organization Healthcare Address [address] [place] [address] Care Team Providers Care Airline Dispatcher Name Role Phone Unavailable Primary Care Provider Unavailabl e Social History Tobacco Use Types Packs/Day Years Used Date Smoking Tobacco: Never Assessed Sex and Gender Information Value Date Recorded Sex Assigned at Not on file Legal Sex Male 6:53 AM EDT Gender Identity Not on file Sexual Orientation Not on file Plan of Treatment Health Maintenance Due Date Last Done Comments [facility]-Depression Screening 1969 [facility]-Infant/Child/Adol SDOH Screenings 1969 [facility]- SDOH Screenings 09/02/1987 [facility]-Adult SDOH Screenings 09/02/1987 [facility]-DTaP,Tdap,and Td Vaccine s (1 - Tdap) 1988 [facility]-Hepatitis B Vaccines (1 of 3 - 19+ 3-dose series) 1988 CT Colonography 2014 Colonoscopy 2014 FIT-DNA 2014 FIT 2014 FOBT 2014 Sigmoidoscopy 2014 [facility]-Colorectal Cancer Screening 2014 [facility]-Pneumococcal Vaccine: 50 + Years (1 of 1 - PCV) 09/02/2019 [facility]-Zoster Vaccines (1 of 2) 09/02/2019 [id number] Vaccine (2023- season) 2024 04/21/2021, 07/04/2020, 05/27/2020 [facility]-Influenza Vaccine (Seas[place] n Ended) 2025 HPV Vaccines Aged Out No longer eligi ble based on patient's age to complete this topic [facility]-HIB Vaccines Aged Out No longer e ligible based on patient's age to complete this topic [facility]-Hepatitis A Vaccines Aged Out No longer eligible based on patient's age to complete this topic [facility]-IPV Vaccines Aged Out No longer e ligible based on patient's age to complete this topic [facility]-Rotavirus Vaccines Aged Out No lo nger eligible based on patient's age to complete this topic
[2024-11-05 08:12] LABS: Hepatitis B Surface Antigen Negative (Negative)
[2024-11-05 14:11] LABS: Testosterone,Total 646 ng/dL (264-916)
== END 2024-11-03 23:59 | disposition home or self-care (01) ==
LOC: LAB.DROPOF 11-04 09:47
PROVIDERS: PCP Family Medicine; Visit Provider Family Medicine
DX: R53.83 Other fatigue (principal); I10 Essential (primary) hypertension; Z72.0 Tobacco use; Z12.5 Encounter for screening for malignant neoplasm of prostate; Z11.59 Encounter for screening for other viral diseases; Z11.4 Encounter for screening for human immunodeficiency virus [HIV]
CPT/HCPCS: 80053; 80061; 83036; 84403; 84443; 85025; 86803; 87340; 87389; G0103

== ENCOUNTER 2025-04-14 10:01 | Outpatient (CLI) | payer OTHER, SELFPAY ==
--- NOTE | 2025-04-14 10:08 | XR_ITS ---
FINAL REPORT CLINICAL HISTORY: low back pain, no recent injury , injury 20 years ago FINDINGS: AP and lateral views of the lumbar spine were obtained. There is no prior exam for comparison. There is no acute fracture or malalignment. Vertebral body height is preserved. Multilevel degenerative disc disease is most pronounced at L5-S1. No acute paraspinal abnormality. IMPRESSION: No acute osseous abnormality of the lumbar spine. Degenerative disc disease. Reviewed, Interpreted and Dictated by Joy Neri MD Transcribed by Nirmala Domínguez Authenticated and [facility]
--- OUTSIDE RECORDS SUMMARY | 2025-04-14 10:09 | XMS_ITS | Clinical Summary ---
Author Organization Healthcare Address [address] [place] [address] Care Team Providers Care Sandblast Carver Name Role Phone Unavailable Primary Care Provider [...] Date Last Done Comments [facility]-Depression Screening 1970 [facility]-/Child/Adol SDOH Screenings 1969 [facility]- SDOH Screenings 09/02/1987 [...] 09/02/2019 [facility]-Zoster Vaccines (1 of 2) 09/02/2019 [id number] Vaccine (2024- season) 2025 04/21/2021, 07/04/2020, 05/27/2020 [facility]-Influenza Vaccine (#1) 2025 HPV Vaccines Aged Out No longer [...]
== END 2025-04-14 23:59 | disposition home or self-care (01) ==
LOC: RAD 10:02
PROVIDERS: PCP Family Medicine; Visit Provider Family Medicine
DX: M51.369 Other intervertebral disc degeneration, lumbar region without mention of lumbar back pain or lower extremity pain (principal)
CPT/HCPCS: 72100

== ENCOUNTER 2025-05-19 07:00 | Outpatient (RCR) | payer OTHER, SELFPAY ==
--- NOTE | 2025-05-05 08:12 | HMH.PTOPEV ---
PT Evaluation Rehab PT Outpatient Evaluation Start: 05/05/25 06:56 Freq: Status: Active Protocol: Document 05/05/25 06:57 PDESEROUX (Rec: 05/05/25 08:12 PDESEROUX [id number]) E-signed By Hao Calvo, PT Outpatient Therapy Subjective History Subjective History Pt. is a 54 year old male who presents to [facility] Outpatient Physical Therapy Services in [place] for the PT outpatient initial evaluation this date(05/05/25 ) w/ c/o acute on chronic and constant L-sided lumbar and L LE P!, stiffness, and weakness that has progressively been getting worse over the last two weeks. Pt. reports, the stabbing pain won't go away. Pt. reports having a chronic history of L-sided lumbar P! w/ intermittent / at worse irritability. Pt. reports the stabbing pain may be acute or more prolonged, however, it'll go away. Pt. reports the stabbing pain has lingered around longer this time. 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 Pt. vocalizes travel a lot for work. Pt. reports initial onset of P! 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 Pt. reports previously having Physical Therapy initially after injury that did help. Pt. reports I don't really want to have surgery secondary to knowing some people that did not get symptom relief post lumbar spine surgery. Previous diagnostic imaging indicates disc blown out, and hitting the nerves per pt. report. Most recent diagnostic imaging(two recent rounds of radiographs) indicated no significant changes between the two and degeneration. Pt. reports never having a round of injections in the lumbar spine in the past. However, pt. vocalizes having symptom relief previously w/ a round of Prednisone. Pt. denies icing. Pt. reports traveling a lot for his work and the long sitting worsen symptom complaint. Pt. also c/o increasing P! w/ bending over, or bending and twisting. Pt. c/o difficulty w/ ambulation when pain is severe. Pt. c/o shooting pain that will refer just above the knee, but from time to time P! will shoot into the foot and ankle. Pt. c/o having numbness and tingling in the L LE in the past that took awhile to go away. Pt. reports he was instructed to take two rounds of Aleve, vocalizes having some symptom relief, but states it won't go away. Pt. does not have a return date to referring Physician at this time. Pt. reports he is careful with how he lifts to avoid re-injury to the back. Current medications includes Lisinopril and two other medications for HTN, but is unable to recall at this time. PMH includes Hypertension, persistent cough , pre-diabetic, and s/p L UE elbow reconstruction. New diagnosis of No cancer in past 12 months? Chief Complaint Pain,Stiff,Catches/Locks,Gives out/Unstable,Paresthesia ,Weakness Symptom Type Ache,Sharp,Dull,Stabbing,Shooting Symptoms Relieved By Rest/Positioning,Prescription Meds Symptoms Aggravated Supine,Sitting,Standing,Bending/Stooping,Twisting, By Walking,Lifting Prior Functional None Limitations Current Functional Driving,Sleeping,Standing,Sitting,Walking,Bending/ Limitations Stooping Symptom Description Constant but Variable,Activity Dependent Level of pain today 2 (0-10) Pain scale - at its 1 best (0-10) Pain scale - at its 8 worst (0-10) Lumbopelvic Eval Posture Thoracic Spine Neutral Posture Standing Position Lumbar Spine Posture Flattened,Decreased Lordosis,Flexible Scoliosis on (R), Standing Position Flexed Assistive device Assistive Devices None / NA Gait Observation General Gait Pattern Antalgic Gait,Decrease Weight Bear (L),Decrease Stride Observation Lngth (R) Palapation tenderness left lumbar spinal Yes: L4-S1 tenderness buttock tenderness Yes: piriformis and glute med. mms. Lumbar/Sacral Tenderness,Spasm Palpation Findings Lumbar/Sacral grade 4 +TTP Palpation Overall Comment Accessory Movement L-spine Vertebrae Central P/A [place],Left P/A [place] Accessory Movements that Elicit Symptoms L4 left L5 left S1 left Range of Motion Lumbar Spine Active 57 Flexion Range of Motion (degrees) Lumbar Spine Active 11 Extension Range of Motion (degrees) Left Lumbar Spine 6 Lateral Flexion Active Range of Motion (degrees) Right Lumbar Spine 13 Lateral Flexion Active Range of Motion (degrees) Lumbar Spine ROM Soft Tissue Tightness,Muscle Weakness,Muscle Tone,Pain Limitations Manual Muscle Test Left Knee Extension 4 Good Strength Grade Knee Flexion 3+ Fair+ Strength Grade Hip Flexion Strength 4- Good- Grade Hip Abduction 4+ Good+ Strength Grade Hip Adduction 4+ Good+ Strength Grade Hip External 4+ Good+ Rotation Strength Grade Hip Internal 4+ Good+ Rotation Strength Grade Hip Extension 4 Good Strength Grade Gluteus Ryan 4 Good Strength Grade Extensor Hallucis 4 Good Longus Strength Grade Ankle Dorsiflexion 4 Good Strength Grade Gastronemius/Soleus 4 Good Strength Grade DTR Rt Patellar 1+ Lt Patellar 1+ Rt Gastroc/Soleus 0 Lt Gastroc/Soleus 0 Altered Sensation Left Comment pt. vocalized symmetrical light touch sensation grossly L LE compared to R LE Special Tests Lumbar Spine Screen Positive Forward Bending Test Positive Left - Standing Hip Piriformis Test Positive Left Sciatic Nerve Positive Left Tension Test Hip 90-90 Straight Positive Left Leg Raise Test Lumbar Long [place] Positive Distraction Test/ Manual Traction Oswestry Index Section 1 Pain Intensity The pain is moderate and does not vary much Section 2 Personal Care ( my way of washing or dressing even though it causes Washing,Dresing) some pain Section 3 Lifting I can lift heavy weights, but it gives me extra pain Section 4 Walking I have no pain when walking Section 5 Sitting I can sit in any chair for as long as I like Section 6 Standing I have some pain on standing, but it does not increase with time Section 7 Sleeping I get pain in bed, but it does not prevent me from sleeping well Section 8 Social Life Pain has no significant effect on my social life apart from limiting Section 9 Traveling I get some pain when traveling, but none of my usual forms of travel m Section 10 Changing Degreee of My pain seems to be getting better, but improvement is Pain slow Score and Risk Level Oswestry Score 12 Oswestry Risk Level Mild Disability Outpatient Therapy Assessment Impairments Problems/ Palpation Tenderness,Impaired Range of Motion,Impaired Impairmments Strength,Impaired Transfers,Impaired Gait Pattern, Impaired Walking,Impaired Standing,Impaired Sitting, Impaired Driving,Impaired Lifting,Impaired Bending, Impaired Work Activities,Subjective C/O Pain,Impaired Self Care/Self Management Prognosis Rehab Potential Good Comment w/ HEP compliancy Clinical Impression Consistent with Yes Diagnosis Consistent with Lumbar Radiculopathy, L PT Patient Goals PT Patient Goals PT Short Term STG#1.) Pt. will self report comparable L-sided lumbar Patient Goals P! a 5/10 @ worse in 4 wks. for improved QOL. STG#2.) Pt. will exhibit grade 2 +TTP to central and L- sided unilateral L4-S1 in 4 wks. for improved QOL. STG#3.) Pt. will demonstrate compliancy w/ initial HEP in 4 wks. for improved prognosis w/ Physical Therapy. PT Financial Institution Manager Patient LTG#1.) Pt. will self report comparable L-sided lumbar Goals P! a 2-3/10 @ worse in 6-8 wks. for improved QOL. LTG#2.) Pt. will exhibit grade 2 +TTP to central and L- sided unilateral L4-S1 in 6-8 wks. to return to sitting w/o difficulty. LTG#3.) Pt. will demonstrate compliancy w/ advanced HEP in 6-8 wks. for optimal prognosis w/ Physical Therapy. LTG#4.) Pt. will exhibit a 10 degree improvement in lumbar flexion in 6-8 wks. to return to bending over and picking objects up off his floor w/o difficulty. LTG#5.) Pt. will exhibit a 8 degree improvement in L- sided lumbar flexion in 6-8 wks. to return to turning over in bed while sleeping w/o difficulty. Outpatient Therapy Plan of Care Treatment Plan May Include Therapeutic Exercise Yes Including Home Exercise Program Manual Therapy Yes Techniques Neuromuscular Re- Yes education Therapeutic Yes Activities to Return to Previous Functional/Work Level ADL/Self Care Yes Education Mechanical Traction Yes Dry Needling Yes Thermal Modalities Yes Electrical Yes Stimulation Ultrasound/ Yes Phonophoresis Iontophoresis Yes Vasopneumatic Yes Compression Pump Massage Yes Eval/Re-Eval Yes Frequency Times per week 2 Duration Number of Weeks 6-8 Addendums This patient is a No candidate for social or vocational rehab ? Patient/Guardian Yes verbally acknowledges understanding of treatment program and consents to further treatment? Patient/Guardian Yes verbally acknowledges understanding of diagnosis, prognosis and goals for treatment? Eval Complexity PT Charges 41697 - Low Complexity Shoulder/Elbow Eval Shoulder Objective Measurements Elbow Objective Measurements PHYSICIAN CERTIFICATION: I certify the specified therapy services for Naun Sanabria are required, authorized, and reviewed every 30 days.
== END 2025-05-19 23:59 | disposition home or self-care (01) ==
LOC: PT.CARL 07:00
PROVIDERS: PCP Family Medicine; Visit Provider Family Medicine
DX: M54.50 Low back pain, unspecified (principal)
CPT/HCPCS: 97032; 97110; 97112; 97140; 97161